=== PATIENT | female | born 1980 ===

== ENCOUNTER 2022-06-16 02:02 | Emergency (ER) | payer SELFPAY ==
[2022-06-16 10:02] LABS: Basophils # (Auto) 0.1 K/mm3 (0.0-0.1); Basophils % (Auto) 1.2 % (0.0-1.8); Eosinophils % (Auto) 0.4 % (0.0-4.3); Hematocrit 35.2 % (30.3-42.9); Hemoglobin 11.1 gm/dl (10.1-14.3); Lymphocytes # (Auto) 1.2 K/mm3 (1.2-5.4); Lymphocytes % (Auto) 18.9 % (13.4-35.0); Mean Corpuscular HGB Conc 32 % (30-34); Mean Corpuscular Volume 80 fl (79-97); Monocytes # (Auto) 0.6 K/mm3 (0.0-0.8); Monocytes % (Auto) 8.7 % (0.0-7.3); Platelet Count 270 K/mm3 (140-440)
[2022-06-16 10:06] LABS: Red Cell Distribution Width 20.3 % (13.2-15.2)
[2022-06-16 10:20] LABS: Alanine Aminotransferase 37 units/L (7-56); Albumin 4.5 g/dL (3.9-5); BUN/Creatinine Ratio 20; Blood Urea Nitrogen 16 mg/dL (7-17); Calcium 8.8 mg/dL (8.4-10.2); Hemolysis Index 1
[2022-06-16] MEDS ORDERED: hydrOXYzine HCL 25 MG TAB PO ONE (10:24)
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
[2022-06-16] MEDS ORDERED: hydrOXYzine HCL 25 MG TAB PO NR (13:00)
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
[2022-06-16 17:41] LABS: Benzodiazepines Screen,Urine Negative; Methadone Screen,Urine Negative; Opiate Screen,Urine Negative
[2022-06-16 17:57] LABS: Amphetamine Screen,Urine Positive; Cannabinoid Screen,Urine Positive; Cocaine Screen,Urine Positive
[2022-06-16] MEDS ORDERED: hydrOXYzine PAMOATE 25 MG CAP PO PRN (18:00)
[2022-06-16] MEDS ORDERED: QUEtiapine 25 MG TAB PO SCH (22:00)
[2022-06-16] MEDS ORDERED: PRAZOSIN 1 MG CAP PO SCH (22:00)
--- NOTE | 2022-06-17 09:48 | Progress Note ---
Subjective - Reason for Consult Consult date: 06/17/22 Reason for consult: suicidal ideation - Chief Complaint Chief complaint: The patient was seen this morning. She continues to be depressed with suicidal ideation to " throw myself under the bus." REVIEW OF SYSTEMS Constitutional: Negative for weight loss ENT: Negative for stridor Respiratory: Negative for cough or hemoptysis All other systems reviewed and are negative MENTAL STATUS General Appearance and Behavior: cooperative Cooperation: Cooperative Mood: depressed Affect and affective range: Congruent with stated mood Thought Process: goal directed Thought Content: Suicidal Speech: Normal volume and Regular rate and rhythm Suicidal Ideation: Yes Homicidal Ideation: Denies Impulse Control: limited Insight and Judgment: Limited Memory: Limited Attention: attentive Orientation: a/o Assessment: Major Depressive Disorder Treatment Plan 1013 Continue home medicines PSYCHOTHERAPY: Supportive psychotherapy provided MEDICAL: Per primary team DELIRIUM PRECAUTIONS: Please re-orient patient frequently, keep lights on during the day, and minimize benzodiazepines and opiates as these medications could worsen patient's confusion. LICENSING SERVICES CLERK: Defer to primary team DISPOSITION: We will recommend acute psychiatric inpatient treatment. FOLLOW-UP: Will follow Thanks Case staffed with Dr. Tate Medications and Allergies Mental Status Exam - Vital signs Last Vital Signs Temp 98.7 F 06/17/22 09:45 Pulse 102 H 06/17/22 09:45 Resp 16 06/17/22 09:45 BP 167/102 06/17/22 09:45 Pulse Ox 99 06/17/22 09:46
[2022-06-17] MEDS: FLUoxetine 20 MG CAP PO SCH (10:05)
[2022-06-17] MEDS: buPROPion XL 150 MG TAB PO SCH (10:05)
[2022-06-17 12:38] LABS: Color,Urine Yellow (Yellow)
[2022-06-17 13:41] LABS: Bacteria,Urine 4+ /HPF (Negative); WBC,Urine > 182.0 /HPF (0.0-6.0)
[2022-06-17 13:42] LABS: Calcium Oxalate Crystals,Urine FEW
--- NOTE | 2022-06-17 14:57 | Emergency Department Report ---
Blank Doc - Documentation Documentation: 41-year-old female presents to the hospital suicidal ideation. Currently on 1013. Urine reveals positive infection. Antibiotics initiated. Mild hypokalemia noted. P.o. potassium ordered. Elevated blood pressure reading noted. Norvasc will be ordered. awaiting placement
[2022-06-17] MEDS ORDERED: POTASSIUM CHLORIDE ER 20 MEQ TAB PO SCH (15:00)
[2022-06-17] MEDS ORDERED: amLODIPine 5 MG TAB PO SCH (15:00)
[2022-06-18] MEDS: NITROFURANTOIN MONOHYD/M-CRYST 100 MG CAP PO SCH ×2 (00:13→09:52)
--- NOTE | 2022-06-18 09:26 | Progress Note ---
Subjective - Reason for Consult Consult date: 06/18/22 Reason for consult: suicidal ideation - Chief Complaint Chief complaint: The patient was seen this morning. She continues to be depressed with suicidal ideation with no specific plan. REVIEW OF SYSTEMS Constitutional: Negative for weight loss ENT: Negative for stridor Respiratory: Negative for cough or hemoptysis All other systems reviewed and are negative MENTAL STATUS General Appearance and Behavior: cooperative Cooperation: Cooperative Mood: depressed Affect and affective range: Congruent with stated mood Thought Process: goal directed Thought Content: Suicidal Speech: Normal volume and Regular rate and rhythm Suicidal Ideation: Yes Homicidal Ideation: Denies Impulse Control: limited Insight and Judgment: Limited Memory: Limited Attention: attentive Orientation: a/o Assessment: Major Depressive Disorder Treatment Plan 1013 Continue home medicines Start Seroquel 25mg BID PSYCHOTHERAPY: Supportive psychotherapy provided MEDICAL: Per primary team DELIRIUM PRECAUTIONS: Please re-orient patient frequently, keep lights on during the day, and minimize benzodiazepines and opiates as these medications could worsen patient's confusion. IT RISK AND ASSURANCE SENIOR MANAGER: Defer to primary team DISPOSITION: We will recommend acute psychiatric inpatient treatment. FOLLOW-UP: Will follow Thanks Case staffed with Dr. Tate Medications and Allergies Mental Status Exam - Vital signs Last Vital Signs Temp 98.8 F 06/18/22 08:50 Pulse 100 H 06/18/22 08:50 Resp 16 06/17/22 09:45 BP 153/97 06/18/22 08:50 Pulse Ox 98 06/18/22 08:50
[2022-06-18] MEDS: FLUoxetine 20 MG CAP PO SCH (09:52)
[2022-06-18] MEDS: buPROPion XL 150 MG TAB PO SCH (09:52)
[2022-06-18] MEDS ORDERED: QUEtiapine 25 MG TAB PO SCH (12:00)
--- NOTE | 2022-06-18 13:43 | Emergency Department Report ---
Blank Doc - Documentation Documentation: 41-year-old female currently on 1013 awaiting placement. Currently Macrobid for UTI. Nurses states patient needs a prescription prior to acceptance to mental health facility
[2022-06-18 15:47] VITALS: BP 147/99
== END 2022-06-18 15:37 ==
LOC: ED 02:02 → EEVIPCON 02:02 → ED 06-18 15:37
DX: T76.21XA Adult sexual abuse, suspected, initial encounter (principal); F32.9 Major depressive disorder, single episode, unspecified; Z20.822 Contact with and (suspected) exposure to COVID-19; F41.9 Anxiety disorder, unspecified; Z79.899 Other long term (current) drug therapy
CPT/HCPCS: 36415; 80053; 80307; 81001; 84703; 85025; 99285; Q0177; U0003; 80320; G0480